=== PATIENT | female | born 1970 | race Caucasian/White ===

== ENCOUNTER 2016-04-21 19:53 | Emergency (ER) | payer BC ==
[2016-04-21] MEDS ORDERED: Ondansetron INJ* 2 MG/ML VIAL IV ONE (20:26)
[2016-04-21] MEDS ORDERED: NS 0.9% 1000 ML* 1,000 ML BOLUS ONE (20:26)
[2016-04-21] MEDS ORDERED: Ketorolac INJ* 30 MG/ML 1 ML VIAL IV ONE (20:27)
[2016-04-21] MEDS ORDERED: Famotidine IV* 10 MG/ML 2 ML (20 mg) IV SLOW PU ONE (20:27)
--- NOTE | 2016-04-21 20:28 | UC ---
Abdominal Pain Female HPI - HPI Summary HPI Summary: 45 yo female with the onset this AM of abd bloating/epigstric pain 8/10, diarrhea x 5-10 and vomiting x 1. no blood in vomit or diarrhea no f/c feels better after vomiting, pain now 5/10 no abd surgeries hx PCOS no hx DM states she has a hiatal hernia - History of Current Complaint Chief Complaint: UCGI Stated Complaint: DIARRHEA,VOMITING Time Seen by Provider: 04/21/16 20:04 Hx Obtained From: Patient Hx Last Menstrual Period: 03/20/16 Onset/Duration: Sudden Onset, Lasting Hours Timing: Constant Severity Initially: Severe Severity Currently: Moderate Pain Intensity: 5 Pain Scale Used: 0-10 Numeric Location: Epigastric Radiates: No Character: Aching Aggravating Factor(s): Food Alleviating Factor(s): Vomiting Associated Signs and Symptoms: Positive: Nausea, Vomiting, Diarrhea Allergies/Adverse Reactions: Allergies Allergy/AdvReac Type Severity Reaction Status Date / Time Chicken Allergy Allergy Intermediate Rash Verified 04/21/16 20:15 Pork Allergy Allergy Intermediate Rash Verified 04/21/16 20:15 Tomato Allergy Intermediate Rash Verified 04/21/16 20:15 Tuna Flavor Allergy Intermediate Rash Verified 04/21/16 20:15 [place] Allergy Intermediate Rash Uncoded 04/21/16 20:15 Pecans Allergy Intermediate Rash Uncoded 04/21/16 20:15 Home Medications: Home Medications Acetaminophen [Acetaminophen Extra Stren] 1 tab PRN 04/21/16 [History] Bismuth Subsalicylate [Pepto Bismol] 04/21/16 [History Confirmed 04/21/16] Famotidine [Pepcid] 04/21/16 [History] Simethicone [Gas-X] 04/21/16 [History] PMH/Surg Hx/FS Hx/Imm Hx Previously Healthy: Yes Endocrine History Of: Denies: Diabetes Cardiovascular History Of: Denies: Hypertension, Congestive Heart Failure GI/ History Of: Denies: Renal Disease - 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 Cancer History Of: Denies: Breast Cancer - Surgical History Surgical History: None - Family History Known Family History: Positive: Hypertension, Diabetes - Social History Alcohol Use: Occasionally Substance Use Type: None Smoking Status (MU): Never Smoked Tobacco - Immunization History Most Recent Tetanus Shot: <5 YEARS ( OF 04/24/14) Review of Systems Constitutional: Negative Skin: Negative Eyes: Negative ENT: Negative Respiratory: Negative Cardiovascular: Negative Gastrointestinal: Abdominal Pain, Vomiting, Diarrhea Genitourinary: Negative Motor: Negative Neurovascular: Negative Musculoskeletal: Negative Neurological: Negative Psychological: Negative All Other Systems Reviewed And Are Negative: Yes Physical Exam Triage Information Reviewed: Yes Appearance: Well-Appearing, No Pain Distress, Well-Nourished Vital Signs: Initial Vital Signs Temp 100.0 F 04/21/16 20:03 Pulse 94 04/21/16 20:03 Resp 16 04/21/16 20:03 Pulse Ox 99 04/21/16 20:03 Eye Exam: Normal ENT: Positive: Hearing grossly normal, Pharynx normal. Negative: Nasal congestion, Nasal drainage, Tonsillar exudate, Trismus, Muffled/hoarse voice Neck: Positive: Supple, Nontender, No Lymphadenopathy Respiratory: Positive: Lungs clear, Normal breath sounds, No respiratory distress, No accessory muscle use Cardiovascular: Positive: RRR, No Murmur Abdomen Description: Positive: Soft. Negative: Nontender - tender epigastrium and LLQ, CVA Tenderness (R), CVA Tenderness (L), Hernia @, Hepatomegaly, McBurney's Point Tenderness, Peritoneal Signs, Pulsatile Mass, Splenomegaly Bowel Sounds: Positive: Present, Hyperactive Musculoskeletal: Positive: ROM Intact, No Edema Neurological Exam: Normal Neurological: Positive: Alert Psychological Exam: Normal Skin Exam: Normal Re-Evaluation - Re-Evaluation First Eval Re-Evaluation Time: 21:35 Change: Improved - pain 2/10 Abd Pain Female Course/Dx - Course Course Of Treatment: pt given option of going to ED. she wishes to go home and see how things go. states she will get recheck tomorrow - Differential Dx/Diagnosis Provider Diagnoses: abdominal pain of uncertain cause. ? gastroenteritis vs other Discharge - Discharge Plan Condition: Stable Disposition: HOME Patient Education Materials: Abdominal Pain (ED) Referrals: Gay Araya MD [Primary Care Provider] - 1 Day Additional Instructions: bowel rest tonight zofan if needed for nausea blood work is pending to ER for : increased pain fever >101 persistent vomiting You need to get recheck tomorrow this may be related to a viral illness but if things worsen you may need tests to to check for gall bladder disease/diverticultis..etc Images Front/Back of Body, Lg ([place]): 1 - tender 2 - tender
[2016-04-21 21:19] VITALS: BP 150/87
[2016-04-21] MEDS ORDERED: Ondansetron ODT TAB* 4 MG PO ONE (21:32)
[2016-04-22 11:47] LABS: Hematocrit 40 % (35-47); Hemoglobin 13.5 g/dl (12.0-16.0); Mean Corpuscular HGB Conc 34 g/dl (31-36); Mean Corpuscular Hemoglobin 29 pg (27-31); Mean Corpuscular Volume 86 fL (80-97); Mean Platelet Volume 9 um3 (7.4-10.4); Red Blood Count 4.68 10^6/ul (4.0-5.4); Red Cell Distribution Width 15 % (10.5-15); White Blood Count 8.5 10^3/ul (3.5-10.8)
[2016-04-22 11:50] LABS: Add Diff/Slide Review? Slide Review Added; Comments Flag Yes
[2016-04-22 12:03] LABS: Albumin 3.9 g/dL (3.2-5.2); BUN/Creatinine Ratio 15.9 (8-20); EGFR African American 130.3 (>60); EGFR Non-African American 101.3 (>60); Globulin 2.7 g/dL (2-4); Potassium 4.1 mmol/L (3.5-5.0); Total Bilirubin 0.6 mg/dL (0.2-1.0); Total Protein 6.6 g/dL (6.4-8.9)
== END 2016-04-21 22:07 | disposition home or self-care (01) ==
LOC: UCEAST 19:53
DX: R10.13 Epigastric pain (principal); R14.0 Abdominal distension (gaseous); R19.7 Diarrhea, unspecified; R11.2 Nausea with vomiting, unspecified
CPT/HCPCS: 36415; 80053; 83690; 85025; 96361; 96374; 96375; 99212; A9270-GY; G0463; J1885; J2405

== ENCOUNTER 2016-11-30 09:00 | Emergency (ER) | payer BC ==
[2016-11-30 09:09] VITALS: BP 143/93
--- NOTE | 2016-11-30 10:09 | RAD ---
INDICATION: Cough and chest pain COMPARISON: None TECHNIQUE: PA and lateral views of the chest were obtained. FINDINGS: The heart and mediastinum are normal in size and contour. The lungs are grossly clear. There is no evidence of large pleural effusion. Visualized bones are normal for the patient's age. There is no radiographic evidence of free air beneath the diaphragm IMPRESSION: No radiographic evidence of acute cardiopulmonary disease.
--- NOTE | 2016-11-30 10:29 | UC ---
Jesse Boogie Angela, [facility] on 11/30/16 at 0918 . General HPI - HPI Summary HPI Summary: In Room Note: This pt is a 46 y/o female presenting to [facility] c/o dry cough x4 days. Pt has no PMHx of asthma or bronchospasms. She states being sick for about one week with left sided nasal drainage and fevers, but her cough started 4 days ago. Pt notes her cough keeps her up at night and has rib discomfort secondary to cough. Pt was taking allergy medications as she thought they were allergies with no relief. She used her humidifier last night and noticed some "liquid sounds" in her lungs for about 1 hour. Pt denies nausea, vomiting, abd pain. Last time she saw her PCP was in July and had a normal exam. PMHx: polycystic ovary syndrome. MDs Note: 1 week of sinus drainage and dry cough with rib discomfort. Vital signs are stable, 98.5 F, BP 143/93, not on BP meds. Pulse ox 98, nonsmoker, increased cholesterol, multiple food allergies. Nurses Note: About a week ago left side of nose started draining. About 5 days ago started running fevers "99.0-100.0 F". Has dry cough, unable to sleep at night, ribs hurt from coughing. - History of Current Complaint Chief Complaint: UCGeneralIllness Stated Complaint: COUGH Time Seen by Provider: 11/30/16 09:01 Hx Obtained From: Patient Hx Last Menstrual Period: 03/20/16 Onset/Duration: Lasting Days Associated Signs & Symptoms: Positive: Cough, Fever, Other - rib discomfort, left nasal drainage. Negative: Back Pain, Diarrhea, Headache, Nausea, Vomiting - Allergy/Home Medications Allergies/Adverse Reactions: Allergies Allergy/AdvReac Type Severity Reaction Status Date / Time Chicken Allergy Allergy Intermediate Rash Verified 11/30/16 09:04 Pork Allergy Allergy Intermediate Rash Verified 11/30/16 09:04 Tomato Allergy Intermediate Rash Verified 11/30/16 09:04 Tuna Flavor Allergy Intermediate Rash Verified 11/30/16 09:04 [place] Allergy Intermediate Rash Uncoded 11/30/16 09:04 Pecans Allergy Intermediate Rash Uncoded 11/30/16 09:04 Home Medications: Home Medications guaiFENesin ER TAB [Mucinex*] 1 tab PO 11/30/16 [History] PMH/Surg Hx/FS Hx/Imm Hx - Additional Past Medical History Additional PMH: PMHx: polycystic ovary syndrome, high cholesterol Other Endocrine History: DENIES: Diabetes Other Cardiovascular History: DENIES: HTN Other Respiratory History: DENIES: asthma - Surgical History Surgical History: Yes Surgery Procedure, Year, and Place: Jaw - Family History Known Family History: Positive: Hypertension Negative: Cardiac Disease, Diabetes - Social History Occupation: Employed Full-time - receptionist/telephone operator at a [employer] Alcohol Use: Rare Substance Use Type: None Smoking Status (MU): Never Smoked Tobacco - Immunization History Most Recent Tetanus Shot: <5 YEARS ( OF 04/24/14) Review of Systems Constitutional: Fever Skin: Negative Eyes: Negative ENT: Nasal Discharge - left Respiratory: Cough Cardiovascular: Negative Gastrointestinal: Negative Genitourinary: Negative Motor: Negative Neurovascular: Negative Musculoskeletal: Other: - rib discomfort secondary to cough Neurological: Negative Psychological: Negative All Other Systems Reviewed And Are Negative: Yes Physical Exam Triage Information Reviewed: Yes Vital Signs: Initial Vital Signs Temp 98.5 F 11/30/16 09:05 Pulse 83 11/30/16 09:05 Resp 18 11/30/16 09:05 BP 143/93 11/30/16 09:05 Pulse Ox 98 11/30/16 09:05 Vital Signs Reviewed: Yes - Additional Comments The patient is well-nourished in no acute pain. The skin is warm and dry and skin color reflects adequate perfusion. HEENT: The head is normocephalic and atraumatic. The pupils are equal and reactive. Nares are patent and without drainage. Mouth reveals moist mucous membranes and the throat is without erythema and exudate. The external ears are intact. The ear canals are patent and without drainage. The tympanic membranes are intact. THERE IS MILD SCLERAL INJECTION ON THE LEFT. Neck is supple with full range of motion and non-tender. Respiratory: Chest is non-tender. SCATTERED RHONCHI BILATERALLY WITH EXTENDED EXPIRATORY PHASE AND WHEEZES PARTICULARLY AFTER DEEP INSPIRATION. EXTRA LUNG SOUNDS, LEFT LUNG WORSE THAN THE RIGHT. NO CRACKLES WERE APPRECIATED. Cardiovascular: Hear is regular rate and rhythm. There is no murmur or rub auscultated. There is no peripheral edema and pulses are symmetrical and equal. Abdomen: The abdomen is soft and non-tender. There are normal bowel sounds heard in all four quadrants and there is no organomegaly palpated. Musculoskeletal: There is no back pain noted. Extremities are non-tender with full range of motion. There is good capillary refill. There is no peripheral edema or calf tenderness elicited. Neurological: Patient is alert and oriented to person, place and time. The patient has symmetrical motor strength in all four extremities. Psychiatric: The patient has an appropriate affect and does not exhibit any anxiety or depression. Diagnostics - Radiology Chest XR Xray Interpretation: No Acute Changes - IMPRESSION: No radiographic evidence of acute cardiopulmonary disease. ED physician has reviewed this radiology report and agrees. Radiology Interpretation Completed By: Radiologist Course/Dx - Course Course Of Treatment: On exam, there is MILD SCLERAL INJECTION ON THE LEFT. SCATTERED RHONCHI BILATERALLY WITH EXTENDED EXPIRATORY PHASE AND WHEEZES PARTICULARLY AFTER DEEP INSPIRATION. EXTRA LUNG SOUNDS, LEFT LUNG WORSE THAN THE RIGHT. NO CRACKLES WERE APPRECIATED. Chest XR shows no radiographic evidence of acute cardiopulmonary disease. MDM: Chest xray is normal. I discussed with the pt the need to deal with bronchospasms. I will start her on albuterol and dexamethasone. Patient has been given an antibiotic because of findings on physical examination and health history. The risks and benefits of antibiotic treatment have been discussed and patient has voiced understanding of these risks including the possibility of developing clostridium difficile enterocolitis. Medications have been included in the original chart and reviewed. Hypertensive BP reading (>=140/90); patient has been advised to check her BP within 1 day-4 wks and if it's higher than 120/80 she should follow up with her primary care provider. - Differential Dx - Multi-Symptom Differential Diagnoses: Other - Pneumonia vs bronchitis with bronchospasm Provider Diagnoses: Bronchitis with bronchospasm Discharge - Discharge Plan Condition: Stable Disposition: HOME Prescriptions: Albuterol HFA INHALER* [Ventolin HFA Inhaler*] 1 - 2 puff INH Q4H PRN #1 mdi PRN Reason: Shortness Of Breath Azithromycin TAB* [Zithromax TAB*] 250 mg PO DAILY #6 tab Benzonatate CAP* [Tessalon CAP*] 100 mg PO TID #20 cap MDD 3 Dexamethasone TAB* [Decadron TAB*] 4 mg PO DAILY #4 tab MDD 2 Spacer/Aerosol-Holding Chamber [Aerochamber Mv] 1 mis XX Q6HR #1 mis Patient Education Materials: Acute Bronchitis (ED), Bronchospasm (ED) Referrals: Gay Araya MD [Primary Care Provider] - Additional Instructions: As we discussed, you don't have pneumonia; you have some bronchial irritation and air trapping. Re- check at any time for increased shortness of breath, pain or temperature. 1. Begin antibiotic, steroid, inhaler and spacer. This is similar to an asthma treatment. The goal is to calm your lungs down. Your x ray show NO pneumonia. 2. See notes below. Recheck for any increased pain, temperature, difficulty breathing or swallowing. BRONCHITIS WITH BRONCHOSPASM (WHEEZING): You have bronchitis with bronchospasm (wheezing). Sometimes people develop wheezing with a chest cold. This occurs either because of an underlying tendency toward asthma or because the virus itself irritates the bronchial tubes. This irritation causes cough, shortness of breath, and wheezing. At home, we'll treat you with a bronchodilator inhaler. Corticosteroids may be required for some patients. Until you recover, avoid chemical fumes, dusts, pollens, and exercising in very cold or dry air. If you smoke, stop now! Most cases of bronchitis get better without antibiotics. We prescribe antibiotics when we believe bacteria are damaging your airways, or if there's high risk the bronchitis will worsen into pneumonia. Increase your fluid intake. A cool mist humidifier may make your lungs more comfortable. An expectorant (cough medicine that loosens phlegm) can help. Repeated episodes of bronchitis and bronchospasm may result in lung damage -- for example, chronic bronchitis, recurrent pneumonias, or emphysema. If you develop a fever, increased wheezing, chest pain, or severe shortness of breath, you should contact the doctor immediately. TREATMENT: Z KHLOE: Zithromax (Azithromycin) 250 mg Z-khloe Label: Two by mouth the first day, then one daily Disp: 1 Z-khloe ALBUTEROL AND SPACER: 2 PUFFS, FOUR TIMES A DAY FOR 2-5 DAYS FOR COUGH Albuterol inhaler #1 Label: one to two puffs four times daily as needed for COUGH Aero-chamber (spacer) for use with oral inhaler Disp: 1 ALSO: Dexamethasone tab 4 mg Label: two tablets daily FOR TWO DAYS Disp: 4 Tessalon (benzonate) 100 mg caps Label: one tab every 6 to 8 hours as needed for cough during the day Disp: 40 (forty) COUGH, CONGESTION of CHEST, SINUSES OR EARS: The most important goal is to liquefy all the phlegm and get it out of your head and chest. Any illness causing cough, congestion, sore throat or sinus discomfort can be helped by doing the following: STAND UNDER SHOWER STREAM TO LOOSEN SECRETIONS. STAY AWAY FROM ANY SMOKE OR IRRITANTS. WHAT ELSE CAN HELP RELIEVE YOUR SYMPTOMS: GENERAL TYPES OF MEDICINE THAT MAY HELP DECONGESTANTS: helps relieve stuffiness and clears sinuses. Pseudoephedrine ( Sudafed or generic) is effective but you need to ask the pharmacist for it because it may be kept behind the counter. ANTIHISTAMINES: are NOT helpful in many colds and flus because they can worsen sore throat, dry eyes and mouth and cause drowsiness. Examples are diphenhydramine, doxylamine and chlorpheniramine. They can help dry you out if you are having profuse, clear drainage from the nose. EXPECTORANTS: helps thin mucous in the nose and chest, making it easier to clear the fluid out. Expectorants are in most combination cough/cold remedies and should be taken with plenty of water. Guaifenesin is the most common expectorant and it comes in pill or liquid form. Mucinex is an extended release form of guaifenesin. COUGH SUPPRESANT: reduces the body's cough reflex. Dextromethorphan is in over the counter products, but sometimes narcotics such as codeine or hydrocodone are used to suppress cough. SPECIFIC MEDICATIONS: The most important goal is to liquefy all the phlegm and get it out of your head and chest: The following medicines (in prescription form or you can buy them without prescription) may help: To help with cough: DEXTROMETHORPHAN (Vicks, Robitussin, Nyquil and other brands) To help break up phlegm: GUAIFENESIN (Mucinex, Robitussin, other brands) To help clear congestion: PSEUDOEPHEDRINE (Sudafed, Dimetapp, other brands) TRY TO CLEAR NOSE: AFRIN NASAL SPRAY: 2-3 SPRAYS PER NOSTRIL, TWICE A DAY FOR TWO DAYS ONLY. USEFUL WAYS TO FEEL BETTER WITHOUT MEDICATIONS: STAND UNDER SHOWER STREAM TO LOOSEN SECRETIONS. USE A VAPORIZOR. STAY AWAY FROM ANY SMOKE OR IRRITANTS. USE SALINE NASAL SPRAY TO KEEP FLOW OF MUCOUS FROM NOSTRILS AND SINUSES. CONSIDER USING NETI POT TO HELP WITH ALLERGIES AND CONGESTION IN THE NOSE. USE THIS THREE TIMES A WEEK. YOU CAN GET THIS AT [facility] IN [place] OR VARIOUS DRUGSTORES. DRINK LOTS OF WARM FLUIDS USEFUL HOME REMEDIES: WARM WATER GARGLES, WITH TSP OF SALT PER 8 OUNCES OF WATER, GARGLE FOR A FEW SECONDS AND SPIT OUT; GARGLE AND SPIT OUT; EVERY THREE HOURS. AND/OR: WARM WATER OR TEA, HONEY AND LEMON; 2-3 CUPS A DAY. FOR SORE THROAT: KEEP THROAT MOIST WITH LOZENGES; TEA AND HONEY. USE WARM WATER GARGLES 3-4 TIMES A DAY. FOLLOW UP: RE-CHECK IN 1O DAYS, NEEDED, IF YOU ARE NOT IMPROVING. RETURN HERE OR SEE YOUR PHYSICIAN. RE-CHECK SOONER IF INCREASED PAIN OR TEMPERATURE. The documentation as recorded by the Jesse rendon Angela accurately reflects the service I personally performed and the decisions made by me, Jose De Jesus Puckett MD.
== END 2016-11-30 10:40 | disposition home or self-care (01) ==
LOC: UCEAST 09:00
DX: J40 Bronchitis, not specified as acute or chronic (principal)
CPT/HCPCS: 71020; 99212; G0463